=== PATIENT | female | born 1955 | race Caucasian/White ===

== ENCOUNTER 2022-07-10 14:32 | Inpatient (IN) | payer OTHER ==
[~2022-07-10] VITALS: Ht 157.5 cm; Wt 47.5 kg
[2022-07-10] MEDS ORDERED: VANC750F2 IV (15:01)
[2022-07-10] MEDS ORDERED: ATOR40TA28 PO (15:01)
[2022-07-10] MEDS ORDERED: FERRHI IV (15:01)
[2022-07-10 15:08] LABS: BASOPHILS % (AUTO) 0.9 % (0.0-2.0); EOSINOPHILS % (AUTO) 0.1 % (1.0-6.0); HEMATOCRIT 28.3 % (36-46); HEMOGLOBIN 9.2 g/dL (12.0-16.0); LYMPHOCYTES # (AUTO) 1.2 K/uL (1.0-4.8); LYMPHOCYTES % (AUTO) 12.9 % (22.0-44.0); MEAN CORPUSCULAR HEMOGLOBIN 27.6 pg (26.0-34.0); MEAN CORPUSCULAR HGB CONC 32.6 G/dL (31.0-37.0); MEAN CORPUSCULAR VOLUME 85 fL (80-100); MONOCYTES # (AUTO) 0.6 K/uL (0.1-1.0); MONOCYTES % (AUTO) 6.2 % (2.0-9.0); NEUTROPHILS # (AUTO) 7.4 K/uL (1.8-7.7); NEUTROPHILS % (AUTO) 79.9 % (40.0-70.0); PLATELET COUNT (AUTO) 341 K/uL (150-450); RED BLOOD CELL COUNT(AUTO) 3.34 MIL/uL (4.00-5.20); RED CELL DISTRIBUTION WIDTH 14.8 % (11.5-14.5)
[2022-07-10 15:19] LABS: ANION GAP 9 mmol/L (8-16); CALCIUM, TOTAL 8.4 mg/dL (8.8-10.5); CARBON DIOXIDE 26 mmol/L (22-29); CHLORIDE 105 mmol/L (98-107); CREATININE 0.88 mg/dL (0.60-1.30); GLOMERULAR FILTR. RATE CALC > 60 mL/min (>60); GLUCOSE,RANDOM 110 mg/dL (70-110); INR 1.1 (0.9-1.1); POTASSIUM 3.1 mmol/L (3.5-5.1); SODIUM SERUM 140 mmol/L (136-145); UREA NITROGEN, BLOOD 7 mg/dL (7-18)
[2022-07-10 15:22] LABS: B-TYPE NATRIURETIC PEPTIDE 456 pg/mL (0-100)
[2022-07-10 15:24] LABS: ALANINE AMINOTRANSFERASE 14 U/L (12-78); ALBUMIN 2.3 g/dL (3.4-5.0); ALKALINE PHOSPHATASE 76 U/L (46-116); ASPARTATE AMINOTRANSFERASE 17 U/L (15-37); BILIRUBIN,TOTAL 0.4 mg/dL (0.1-1.0); CREATINE KINASE, TOTAL ONLY 40 U/L (26-192); TOTAL PROTEIN, SERUM 6.2 g/dL (6.4-8.2)
[2022-07-10] MEDS ORDERED: ONDANSETRON HCL 4 MG/2 ML VIAL IVP PRN (15:30)
[2022-07-10] MEDS ORDERED: VANCOMYCIN HCL 1 GM/D5% WATER 200 ML IV ONE (15:30)
[2022-07-10] MEDS ORDERED: AMIO50VI IV (15:34)
[2022-07-10] MEDS ORDERED: ASPI-1450 PO (15:34)
[2022-07-10] MEDS ORDERED: VANCOMYCIN HCL 1.25 GM in DEXTROSE 5%-WATER 250 ML IV ONE (15:45)
[2022-07-10 15:54] LABS: C-REACTIVE PROTEIN QUANT 4.29 mg/dL (0.00-0.30)
[2022-07-10] MEDS ORDERED: CefTRIAXone 1 GM/DEXTROSE 50 ML IV SCH (16:00)
[2022-07-10] MEDS ORDERED: POTASSIUM CHLORIDE 20 MEQ ER TABLET PO PRN (16:15)
[2022-07-10] MEDS ORDERED: POTASSIUM CHL 10 MEQ/WATER 50 ML IV PRN (16:15)
[2022-07-10 16:28] LABS: ERYTHROCYTE SEDIMENTATION RATE 55 MM/HR (0-20)
[2022-07-10] MEDS ORDERED: SODIUM CHLORIDE 0.9% 100 ML ONE (18:16)
[2022-07-10] MEDS ORDERED: IOHEXOL 300 MG/ML 100 ML VIAL ONE (18:16)
[2022-07-10 20:13] LABS: COVID AG,FIA SOURCE NASAL SWAB
[2022-07-10 20:15] LABS: APPEARANCE,URINE CLEAR (CLEAR); BILIRUBIN,URINE NEGATIVE (NEGATIVE); GLUCOSE, URINE (UA) NEGATIVE (NEGATIVE); KETONES,URINE NEGATIVE (NEGATIVE); LEUKOCYTE ESTERASE ,URINE NEGATIVE (NEGATIVE); NITRATE,URINE NEGATIVE (NEGATIVE); OCCULT BLOOD,URINE NEGATIVE (NEGATIVE); PH,URINE 6.5 (5.0-8.0); PROTEIN,URINE NEGATIVE (NEGATIVE); SPECIFIC GRAVITIY, URINE 1.011 (1.003-1.030); UROBILINOGEN,URINE <=1.0 mg/dL (<=1.0)
[2022-07-10] MEDS ORDERED: APIXABAN 5 MG TABLET PO SCH (21:00)
[2022-07-10 21:21] VITALS: BP 136/77
[2022-07-10] MEDS: AMIODARONE HCL 200 MG TABLET PO SCH (21:29)
[2022-07-10] MEDS: HEPARIN SODIUM,PORCINE 5,000 UNITS/ML VIAL SQ SCH (21:29)
[2022-07-10] MEDS: ATORVASTATIN CALCIUM 40 MG TABLET PO SCH (21:29)
[2022-07-10] MEDS: DOCUSATE SODIUM 100 MG CAPSULE PO SCH (21:29)
[2022-07-10] MEDS ORDERED: INFLUENZA VIRUS VACCINE QVS 2022-23 (6MO+)/PF 60 MCG/0.5 ML SYRINGE IM. ONE (22:30)
[2022-07-10] MEDS ORDERED: PNEUMOCOCCAL VACCINE POLYVALENT 0.5 ML VIAL [PPSV23] IM. ONE (22:30)
[2022-07-11] VITALS (19 sets, daily range): BP systolic 111–159; BP diastolic 72–82
[2022-07-11 06:53] LABS: BASOPHILS % (AUTO) 1.5 % (0.0-2.0); EOSINOPHILS % (AUTO) 0.9 % (1.0-6.0); HEMATOCRIT 26.8 % (36-46); LYMPHOCYTES # (AUTO) 1.2 K/uL (1.0-4.8); MEAN CORPUSCULAR HEMOGLOBIN 28.2 pg (26.0-34.0); MEAN CORPUSCULAR HGB CONC 33.6 G/dL (31.0-37.0); MEAN CORPUSCULAR VOLUME 84 fL (80-100); MONOCYTES # (AUTO) 0.5 K/uL (0.1-1.0); MONOCYTES % (AUTO) 6.3 % (2.0-9.0); NEUTROPHILS # (AUTO) 5.5 K/uL (1.8-7.7); NEUTROPHILS % (AUTO) 74.3 % (40.0-70.0); PLATELET COUNT (AUTO) 350 K/uL (150-450); RED BLOOD CELL COUNT(AUTO) 3.19 MIL/uL (4.00-5.20); RED CELL DISTRIBUTION WIDTH 14.6 % (11.5-14.5)
[2022-07-11 07:06] LABS: ANION GAP 9 mmol/L (8-16); CALCIUM, TOTAL 8.7 mg/dL (8.8-10.5); CARBON DIOXIDE 26 mmol/L (22-29); CHLORIDE 107 mmol/L (98-107); CREATININE 0.63 mg/dL (0.60-1.30); GLUCOSE,RANDOM 95 mg/dL (70-110); POTASSIUM 3.5 mmol/L (3.5-5.1); SODIUM SERUM 142 mmol/L (136-145); UREA NITROGEN, BLOOD 4 mg/dL (7-18)
[2022-07-11 07:07] LABS: GLOMERULAR FILTR. RATE CALC > 60 mL/min (>60)
[2022-07-11] MEDS: AMIODARONE HCL 200 MG TABLET PO SCH ×2 (08:14→21:23)
[2022-07-11] MEDS: HEPARIN SODIUM,PORCINE 5,000 UNITS/ML VIAL SQ SCH ×2 (08:14→21:00)
[2022-07-11] MEDS: DOCUSATE SODIUM 100 MG CAPSULE PO SCH ×2 (08:14→21:23)
[2022-07-11] MEDS: FAMOTIDINE 20 MG TABLET PO SCH (08:14)
[2022-07-11] MEDS: VANCOMYCIN HCL 750 MG in DEXTROSE 5%-WATER 250 ML IV SCH ×2 (08:15→21:24)
[2022-07-11] MEDS ORDERED: SODIUM CHLORIDE 0.9% 500 ML IV ONE ×2 (08:27→15:30)
[2022-07-11] MEDS ORDERED: LIDOCAINE 2% VISCOUS 15 ML SOLUTION UDCUP ONE (08:45)
[2022-07-11] MEDS ORDERED: MIDAZOLAM HCL 2 MG/2 ML VIAL ONE ×2 (09:39→15:10)
[2022-07-11] MEDS ORDERED: FentaNYL CITRATE PF 100 MCG/2 ML VIAL ONE ×2 (09:39→15:10)
[2022-07-11] MEDS ORDERED: LIDOCAINE 2% VISCOUS 15 ML SOLUTION UDCUP PO ONE (09:45)
[2022-07-11] MEDS ORDERED: MIDAZOLAM HCL 2 MG/2 ML VIAL IVP ONE ×3 (09:45→15:30)
[2022-07-11] MEDS ORDERED: FentaNYL CITRATE PF 100 MCG/2 ML VIAL IVP ONE ×3 (09:45→15:30)
[2022-07-11] MEDS ORDERED: PEG 400/HYPROMELLOSE/GLYCERIN 15 ML OPHTHALMIC SOLUTION OU PRN (12:00)
[2022-07-11] MEDS ORDERED: LIDOCAINE/PF 1% 30 ML VIAL ONE (14:32)
[2022-07-11] MEDS ORDERED: VERAPAMIL HCL 2.5 MG/ML 2 ML VIAL ONE (14:32)
[2022-07-11] MEDS ORDERED: IOHEXOL 300 MG/ML 100 ML VIAL ONE (14:32)
[2022-07-11] MEDS ORDERED: SODIUM BICARBONATE 50 MEQ/50 ML VIAL ONE (14:32)
[2022-07-11] MEDS ORDERED: NITROGLYCERIN 50 MG/D5% WATER 250 ML ONE (14:32)
[2022-07-11] MEDS ORDERED: HEPARIN SODIUM 1000 UNITS/NS 1,000 ML ONE (14:32)
[2022-07-11] MEDS ORDERED: IOHEXOL 300 MG/ML 100 ML VIAL IARTER ONE (15:30)
[2022-07-11] MEDS ORDERED: LIDOCAINE 1% 30 ML/SOD BICARB 8.4% 4 ML SQ ONE (15:30)
[2022-07-11] MEDS ORDERED: HEPARIN SODIUM 2,000 UNITS in HEPARIN SODIUM 1000 UNITS/NS 1,000 ML IARTER ONE (15:30)
[2022-07-11] MEDS ORDERED: HEPARIN SODIUM,PORCINE 1,000 UNITS/ML 10 ML VIAL IARTER ONE (15:30)
[2022-07-11] MEDS ORDERED: NITROGLYCERIN/D5W 50 MG/250 ML IV BOTTLE IARTER ONE (15:30)
[2022-07-11] MEDS ORDERED: VERAPAMIL HCL 2.5 MG/ML 2 ML VIAL IARTER ONE (15:30)
[2022-07-11] MEDS: CefTRIAXone SODIUM 2 GM in DEXTROSE 5%-WATER 50 ML IV SCH (16:07)
[2022-07-11] MEDS: ATORVASTATIN CALCIUM 40 MG TABLET PO SCH (21:23)
[2022-07-12 04:23] VITALS: BP 107/69
[2022-07-12] MEDS: VANCOMYCIN HCL 750 MG in DEXTROSE 5%-WATER 250 ML IV SCH ×2 (07:03→20:58)
[2022-07-12 07:22] VITALS: BP 127/77
[2022-07-12 07:25] LABS: ANION GAP 7 mmol/L (8-16); C-REACTIVE PROTEIN QUANT 2.94 mg/dL (0.00-0.30); CALCIUM, TOTAL 8.3 mg/dL (8.8-10.5); CARBON DIOXIDE 28 mmol/L (22-29); CHLORIDE 103 mmol/L (98-107); CREATININE 0.84 mg/dL (0.60-1.30); GLUCOSE,RANDOM 99 mg/dL (70-110); POTASSIUM 3.4 mmol/L (3.5-5.1); SODIUM SERUM 138 mmol/L (136-145); UREA NITROGEN, BLOOD 4 mg/dL (7-18); VANCOMYCIN,RANDOM 22.6 mcg/mL (25.0-50.0)
[2022-07-12 07:28] LABS: GLOMERULAR FILTR. RATE CALC > 60 mL/min (>60)
[2022-07-12] MEDS: AMIODARONE HCL 200 MG TABLET PO SCH ×2 (09:04→21:14)
[2022-07-12] MEDS: FAMOTIDINE 20 MG TABLET PO SCH (09:05)
[2022-07-12] MEDS: DOCUSATE SODIUM 100 MG CAPSULE PO SCH ×2 (09:05→21:00)
[2022-07-12] MEDS: HEPARIN SODIUM,PORCINE 5,000 UNITS/ML VIAL SQ SCH ×2 (09:09→21:14)
[2022-07-12 11:08] VITALS: BP 132/75
[2022-07-12 15:31] VITALS: BP 141/81
[2022-07-12] MEDS: CefTRIAXone SODIUM 2 GM in DEXTROSE 5%-WATER 50 ML IV SCH (16:21)
[2022-07-12 20:00] VITALS: BP 133/75
[2022-07-12] MEDS: ATORVASTATIN CALCIUM 40 MG TABLET PO SCH (21:14)
[2022-07-13 00:15] VITALS: BP 135/69
[2022-07-13 04:02] VITALS: BP 106/66
[2022-07-13 07:13] LABS: ANION GAP 7 mmol/L (8-16); CALCIUM, TOTAL 8.3 mg/dL (8.8-10.5); CARBON DIOXIDE 27 mmol/L (22-29); CHLORIDE 104 mmol/L (98-107); GLUCOSE,RANDOM 98 mg/dL (70-110); SODIUM SERUM 138 mmol/L (136-145); UREA NITROGEN, BLOOD 3 mg/dL (7-18)
[2022-07-13 07:14] LABS: GLOMERULAR FILTR. RATE CALC > 60 mL/min (>60)
[2022-07-13] MEDS: AMIODARONE HCL 200 MG TABLET PO SCH ×2 (08:22→20:51)
[2022-07-13] MEDS: HEPARIN SODIUM,PORCINE 5,000 UNITS/ML VIAL SQ SCH (08:22)
[2022-07-13] MEDS: DOCUSATE SODIUM 100 MG CAPSULE PO SCH ×2 (08:22→20:50)
[2022-07-13] MEDS: FAMOTIDINE 20 MG TABLET PO SCH (08:22)
[2022-07-13] MEDS: VANCOMYCIN HCL 750 MG in DEXTROSE 5%-WATER 250 ML IV SCH ×2 (08:28→20:49)
[2022-07-13 08:46] VITALS: BP 128/76
[2022-07-13 10:18] LABS: CHOL/HDL RATIO 2.5 (3.9-5.7); CHOLESTEROL 113 mg/dL (131-200); HDL CHOLESTEROL 45 mg/dL (40-60); LDL CHOL (CALC.) 54 mg/dL (0-130); TRIGLYCERIDES 69 mg/dL (15-150)
[2022-07-13 11:18] VITALS: BP 126/75
[2022-07-13 11:36] LABS: BASOPHILS % (AUTO) 0.3 % (0.0-2.0); EOSINOPHILS % (AUTO) 1.8 % (1.0-6.0); HEMATOCRIT 27.7 % (36-46); HEMOGLOBIN 9.2 g/dL (12.0-16.0); LYMPHOCYTES # (AUTO) 1.3 K/uL (1.0-4.8); LYMPHOCYTES % (AUTO) 15.1 % (22.0-44.0); MEAN CORPUSCULAR HEMOGLOBIN 28.4 pg (26.0-34.0); MEAN CORPUSCULAR HGB CONC 33.1 G/dL (31.0-37.0); MEAN CORPUSCULAR VOLUME 86 fL (80-100); MONOCYTES # (AUTO) 0.5 K/uL (0.1-1.0); MONOCYTES % (AUTO) 5.6 % (2.0-9.0); NEUTROPHILS # (AUTO) 6.7 K/uL (1.8-7.7); NEUTROPHILS % (AUTO) 77.2 % (40.0-70.0); PLATELET COUNT (AUTO) 338 K/uL (150-450); RED BLOOD CELL COUNT(AUTO) 3.23 MIL/uL (4.00-5.20); RED CELL DISTRIBUTION WIDTH 15.1 % (11.5-14.5)
[2022-07-13 15:50] VITALS: BP 138/81
[2022-07-13] MEDS: CefTRIAXone SODIUM 2 GM in DEXTROSE 5%-WATER 50 ML IV SCH (16:08)
[2022-07-13 20:01] VITALS: BP 134/71
[2022-07-13] MEDS: ATORVASTATIN CALCIUM 40 MG TABLET PO SCH (20:50)
[2022-07-13] MEDS: APIXABAN 5 MG TABLET PO SCH (20:50)
[2022-07-14 00:25] VITALS: BP 110/61
[2022-07-14 04:40] VITALS: BP 105/60
[2022-07-14 07:21] VITALS: BP 131/79
[2022-07-14 07:33] LABS: C-REACTIVE PROTEIN QUANT 3.33 mg/dL (0.00-0.30); CALCIUM, TOTAL 8.8 mg/dL (8.8-10.5); CREATININE 0.97 mg/dL (0.60-1.30); POTASSIUM 4.1 mmol/L (3.5-5.1); VANCOMYCIN,RANDOM 26.1 mcg/mL (25.0-50.0)
[2022-07-14] MEDS: DOCUSATE SODIUM 100 MG CAPSULE PO SCH ×2 (08:15→20:20)
[2022-07-14] MEDS: FAMOTIDINE 20 MG TABLET PO SCH (08:15)
[2022-07-14] MEDS: AMIODARONE HCL 200 MG TABLET PO SCH ×2 (08:15→20:21)
[2022-07-14] MEDS: APIXABAN 5 MG TABLET PO SCH ×2 (08:16→20:21)
[2022-07-14] MEDS: VANCOMYCIN HCL 500 MG in DEXTROSE 5%-WATER 100 ML IV SCH ×3 (08:27→20:39)
[2022-07-14] MEDS: MULTIVITAMINS WITH MINERALS, THERAPEUTIC TABLET PO SCH (10:45)
[2022-07-14 11:30] VITALS: BP 133/78
[2022-07-14 14:56] VITALS: BP 129/73
[2022-07-14] MEDS: CefTRIAXone SODIUM 2 GM in DEXTROSE 5%-WATER 50 ML IV SCH (17:04)
[2022-07-14] MEDS: ACETAMINOPHEN 325 MG TABLET PO PRN (17:04)
[2022-07-14 20:02] VITALS: BP 121/74
[2022-07-14] MEDS: ATORVASTATIN CALCIUM 40 MG TABLET PO SCH (20:21)
[2022-07-15 05:11] VITALS: BP 111/71
[2022-07-15 07:50] LABS: ANION GAP 7 mmol/L (8-16); C-REACTIVE PROTEIN QUANT 3.42 mg/dL (0.00-0.30); CALCIUM, TOTAL 8.6 mg/dL (8.8-10.5); CARBON DIOXIDE 29 mmol/L (22-29); CHLORIDE 103 mmol/L (98-107); CREATININE 0.92 mg/dL (0.60-1.30); GLUCOSE,RANDOM 95 mg/dL (70-110); POTASSIUM 4.1 mmol/L (3.5-5.1); SODIUM SERUM 139 mmol/L (136-145); UREA NITROGEN, BLOOD 7 mg/dL (7-18)
[2022-07-15 07:53] LABS: GLOMERULAR FILTR. RATE CALC > 60 mL/min (>60)
[2022-07-15 08:12] VITALS: BP 137/73
[2022-07-15] MEDS: VANCOMYCIN HCL 500 MG in DEXTROSE 5%-WATER 100 ML IV SCH ×2 (09:08→19:43)
[2022-07-15] MEDS: MULTIVITAMINS WITH MINERALS, THERAPEUTIC TABLET PO SCH (09:09)
[2022-07-15] MEDS: DOCUSATE SODIUM 100 MG CAPSULE PO SCH ×2 (09:09→19:43)
[2022-07-15] MEDS: AMIODARONE HCL 200 MG TABLET PO SCH ×2 (09:10→19:42)
[2022-07-15] MEDS: APIXABAN 5 MG TABLET PO SCH ×2 (09:10→19:43)
[2022-07-15] MEDS: FAMOTIDINE 20 MG TABLET PO SCH (09:10)
[2022-07-15 11:16] VITALS: BP 126/67
[2022-07-15 16:05] VITALS: BP 129/75
[2022-07-15] MEDS ORDERED: GADOTERATE MEGLUMINE 10 MMOL/20 ML VIAL IVP ONE (17:52)
[2022-07-15] MEDS: AMPICILLIN SODIUM/SULBACTAM NA 3 GM in SODIUM CHLORIDE 0.9% 100 ML IV SCH (19:42)
[2022-07-15] MEDS: ATORVASTATIN CALCIUM 40 MG TABLET PO SCH (19:43)
[2022-07-15 20:15] VITALS: BP 128/55
[2022-07-15] MEDS ORDERED: SODIUM CHLORIDE 0.9% 500 ML IV ONE (20:15)
[2022-07-16] VITALS (7 sets, daily range): BP systolic 110–127; BP diastolic 57–77
[2022-07-16] MEDS: AMPICILLIN SODIUM/SULBACTAM NA 3 GM in SODIUM CHLORIDE 0.9% 100 ML IV SCH ×4 (00:21→17:48)
[2022-07-16 07:13] LABS: BASOPHILS % (AUTO) 1.1 % (0.0-2.0); EOSINOPHILS % (AUTO) 1.3 % (1.0-6.0); HEMATOCRIT 28.8 % (36-46); HEMOGLOBIN 9.5 g/dL (12.0-16.0); LYMPHOCYTES # (AUTO) 0.9 K/uL (1.0-4.8); LYMPHOCYTES % (AUTO) 8.7 % (22.0-44.0); MEAN CORPUSCULAR HEMOGLOBIN 28.8 pg (26.0-34.0); MEAN CORPUSCULAR VOLUME 87 fL (80-100); MONOCYTES # (AUTO) 0.5 K/uL (0.1-1.0); NEUTROPHILS # (AUTO) 8.9 K/uL (1.8-7.7); NEUTROPHILS % (AUTO) 83.9 % (40.0-70.0); PLATELET COUNT (AUTO) 361 K/uL (150-450); RED CELL DISTRIBUTION WIDTH 15.3 % (11.5-14.5)
[2022-07-16 07:48] LABS: ANION GAP 4 mmol/L (8-16); C-REACTIVE PROTEIN QUANT 3.28 mg/dL (0.00-0.30); CALCIUM, TOTAL 8.6 mg/dL (8.8-10.5); CARBON DIOXIDE 30 mmol/L (22-29); CHLORIDE 100 mmol/L (98-107); GLUCOSE,RANDOM 98 mg/dL (70-110); POTASSIUM 4.5 mmol/L (3.5-5.1); SODIUM SERUM 134 mmol/L (136-145); UREA NITROGEN, BLOOD 10 mg/dL (7-18); VANCOMYCIN,RANDOM 18.7 mcg/mL (25.0-50.0)
[2022-07-16 07:50] LABS: GLOMERULAR FILTR. RATE CALC > 60 mL/min (>60)
[2022-07-16] MEDS: APIXABAN 5 MG TABLET PO SCH ×2 (08:46→21:31)
[2022-07-16] MEDS: DOCUSATE SODIUM 100 MG CAPSULE PO SCH ×2 (08:46→21:31)
[2022-07-16] MEDS: FAMOTIDINE 20 MG TABLET PO SCH (08:46)
[2022-07-16] MEDS: MULTIVITAMINS WITH MINERALS, THERAPEUTIC TABLET PO SCH (08:46)
[2022-07-16] MEDS: AMIODARONE HCL 200 MG TABLET PO SCH ×2 (08:47→21:30)
[2022-07-16] MEDS: VANCOMYCIN HCL 500 MG in DEXTROSE 5%-WATER 100 ML IV SCH ×2 (08:48→21:55)
[2022-07-16] MEDS: ATORVASTATIN CALCIUM 40 MG TABLET PO SCH (21:29)
[2022-07-16] MEDS ORDERED: SODIUM CHLORIDE 0.9% 250 ML IV ONE (23:58)
[2022-07-17] MEDS: AMPICILLIN SODIUM/SULBACTAM NA 3 GM in SODIUM CHLORIDE 0.9% 100 ML IV SCH ×4 (01:54→21:39)
[2022-07-17 04:08] VITALS: BP 101/60
[2022-07-17 07:01] LABS: ALBUMIN 2.3 g/dL (3.4-5.0); BILIRUBIN,TOTAL 0.4 mg/dL (0.1-1.0); C-REACTIVE PROTEIN QUANT 2.9 mg/dL (0.00-0.30); CALCIUM, TOTAL 8.6 mg/dL (8.8-10.5); CREATININE 0.93 mg/dL (0.60-1.30); POTASSIUM 4.1 mmol/L (3.5-5.1); TOTAL PROTEIN, SERUM 6.3 g/dL (6.4-8.2)
[2022-07-17 08:12] VITALS: BP 103/61
[2022-07-17] MEDS: VANCOMYCIN HCL 500 MG in DEXTROSE 5%-WATER 100 ML IV SCH ×2 (08:12→20:31)
[2022-07-17] MEDS: MULTIVITAMINS WITH MINERALS, THERAPEUTIC TABLET PO SCH (08:12)
[2022-07-17] MEDS: APIXABAN 5 MG TABLET PO SCH ×2 (08:13→21:00)
[2022-07-17] MEDS: DOCUSATE SODIUM 100 MG CAPSULE PO SCH ×2 (08:13→20:31)
[2022-07-17] MEDS: FAMOTIDINE 20 MG TABLET PO SCH (08:13)
[2022-07-17] MEDS: AMIODARONE HCL 200 MG TABLET PO SCH ×2 (08:13→20:31)
[2022-07-17 10:07] LABS: BARTONELLA QUINTANA IGG TITER Negative titer (Neg:<1:320); BARTONELLA QUINTANA IGM TITER Negative titer (Neg:<1:100)
[2022-07-17 12:07] LABS: Q FEVER AB PHASE I Negative (Neg:<1:16)
[2022-07-17 12:17] VITALS: BP 113/64
[2022-07-17 16:23] VITALS: BP 123/69
[2022-07-17 20:00] VITALS: BP 117/63
[2022-07-17] MEDS: ATORVASTATIN CALCIUM 40 MG TABLET PO SCH (20:31)
[2022-07-17 23:48] VITALS: BP 112/60
[2022-07-18] MEDS: AMPICILLIN SODIUM/SULBACTAM NA 3 GM in SODIUM CHLORIDE 0.9% 100 ML IV SCH ×4 (03:07→20:27)
[2022-07-18 05:20] VITALS: BP 121/62
[2022-07-18 07:01] VITALS: BP 119/68
[2022-07-18] MEDS: AMIODARONE HCL 200 MG TABLET PO SCH ×2 (07:53→20:26)
[2022-07-18] MEDS: VANCOMYCIN HCL 500 MG in DEXTROSE 5%-WATER 100 ML IV SCH ×2 (07:57→20:26)
[2022-07-18] MEDS: APIXABAN 5 MG TABLET PO SCH ×2 (07:57→20:26)
[2022-07-18] MEDS: DOCUSATE SODIUM 100 MG CAPSULE PO SCH ×2 (07:57→20:26)
[2022-07-18] MEDS: FAMOTIDINE 20 MG TABLET PO SCH (07:58)
[2022-07-18] MEDS: MULTIVITAMINS WITH MINERALS, THERAPEUTIC TABLET PO SCH (07:58)
[2022-07-18 08:57] LABS: CALCIUM, TOTAL 8.8 mg/dL (8.8-10.5); CREATININE 1.03 mg/dL (0.60-1.30)
[2022-07-18 11:51] VITALS: BP 124/68
[2022-07-18] MEDS ORDERED: RINGERS SOLUTION,LACTATED 1,000 ML IV ONE (14:30)
[2022-07-18 15:52] VITALS: BP 117/69
[2022-07-18 19:17] VITALS: BP 129/78
[2022-07-18] MEDS: ATORVASTATIN CALCIUM 40 MG TABLET PO SCH (20:26)
[2022-07-18] MEDS: ACETAMINOPHEN 325 MG TABLET PO PRN (20:26)
[2022-07-18] MEDS ORDERED: SODIUM CHLORIDE 0.9% 250 ML IV ONE (20:32)
[2022-07-18 23:40] VITALS: BP 132/75
[2022-07-19 03:40] VITALS: BP 95/54
[2022-07-19] MEDS: AMPICILLIN SODIUM/SULBACTAM NA 3 GM in SODIUM CHLORIDE 0.9% 100 ML IV SCH ×4 (03:46→22:30)
[2022-07-19 07:32] LABS: CALCIUM, TOTAL 9.3 mg/dL (8.8-10.5); CREATININE 1.06 mg/dL (0.60-1.30); VANCOMYCIN,RANDOM 17.1 mcg/mL (25.0-50.0)
[2022-07-19 07:52] VITALS: BP 134/76
[2022-07-19] MEDS: MULTIVITAMINS WITH MINERALS, THERAPEUTIC TABLET PO SCH (08:25)
[2022-07-19] MEDS: AMIODARONE HCL 200 MG TABLET PO SCH ×2 (08:26→20:37)
[2022-07-19] MEDS: APIXABAN 5 MG TABLET PO SCH ×2 (08:27→20:37)
[2022-07-19] MEDS: FAMOTIDINE 20 MG TABLET PO SCH (08:27)
[2022-07-19] MEDS: DOCUSATE SODIUM 100 MG CAPSULE PO SCH ×2 (08:27→20:37)
[2022-07-19] MEDS: VANCOMYCIN HCL 500 MG in DEXTROSE 5%-WATER 100 ML IV SCH ×2 (08:28→20:37)
[2022-07-19 16:41] VITALS: BP 124/71
[2022-07-19] MEDS: ATORVASTATIN CALCIUM 40 MG TABLET PO SCH (20:37)
[2022-07-19 23:40] VITALS: BP 140/64
[2022-07-20 04:00] VITALS: BP 109/70
[2022-07-20] MEDS: AMPICILLIN SODIUM/SULBACTAM NA 3 GM in SODIUM CHLORIDE 0.9% 100 ML IV SCH ×4 (04:39→21:00)
[2022-07-20 06:16] LABS: BASOPHILS % (AUTO) 0.7 % (0.0-2.0); EOSINOPHILS % (AUTO) 0.6 % (1.0-6.0); HEMATOCRIT 31.4 % (36-46); HEMOGLOBIN 10.2 g/dL (12.0-16.0); LYMPHOCYTES # (AUTO) 0.9 K/uL (1.0-4.8); LYMPHOCYTES % (AUTO) 9.5 % (22.0-44.0); MEAN CORPUSCULAR HEMOGLOBIN 28.3 pg (26.0-34.0); MEAN CORPUSCULAR HGB CONC 32.4 G/dL (31.0-37.0); MEAN CORPUSCULAR VOLUME 87 fL (80-100); MONOCYTES # (AUTO) 0.5 K/uL (0.1-1.0); MONOCYTES % (AUTO) 5.5 % (2.0-9.0); NEUTROPHILS # (AUTO) 8.1 K/uL (1.8-7.7); NEUTROPHILS % (AUTO) 83.7 % (40.0-70.0); PLATELET COUNT (AUTO) 364 K/uL (150-450); RED CELL DISTRIBUTION WIDTH 16.6 % (11.5-14.5)
[2022-07-20 06:37] LABS: ALBUMIN 2.5 g/dL (3.4-5.0); BILIRUBIN,TOTAL 0.4 mg/dL (0.1-1.0); CALCIUM, TOTAL 8.8 mg/dL (8.8-10.5); CREATININE 1.03 mg/dL (0.60-1.30); MAGNESIUM 2.7 mg/dL (1.80-2.40); POTASSIUM 4.1 mmol/L (3.5-5.1)
[2022-07-20] MEDS: VANCOMYCIN HCL 500 MG in DEXTROSE 5%-WATER 100 ML IV SCH ×2 (08:45→20:34)
[2022-07-20] MEDS: DOCUSATE SODIUM 100 MG CAPSULE PO SCH ×2 (09:59→20:34)
[2022-07-20] MEDS: FAMOTIDINE 20 MG TABLET PO SCH (09:59)
[2022-07-20] MEDS: AMIODARONE HCL 200 MG TABLET PO SCH ×2 (09:59→20:34)
[2022-07-20] MEDS: MULTIVITAMINS WITH MINERALS, THERAPEUTIC TABLET PO SCH (09:59)
[2022-07-20] MEDS: APIXABAN 5 MG TABLET PO SCH ×2 (09:59→20:34)
[2022-07-20 12:15] VITALS: BP 123/73
[2022-07-20] MEDS: ACETAMINOPHEN 325 MG TABLET PO PRN (14:39)
[2022-07-20 15:48] VITALS: BP 112/69
[2022-07-20 16:00] VITALS: BP 117/73
[2022-07-20 20:02] VITALS: BP 123/74
[2022-07-20] MEDS: ATORVASTATIN CALCIUM 40 MG TABLET PO SCH (20:34)
[2022-07-21 00:17] VITALS: BP 111/64
[2022-07-21] MEDS: AMPICILLIN SODIUM/SULBACTAM NA 3 GM in SODIUM CHLORIDE 0.9% 100 ML IV SCH ×4 (03:59→22:51)
[2022-07-21 04:56] VITALS: BP 117/71
[2022-07-21 06:25] LABS: BASOPHILS % (AUTO) 0.6 % (0.0-2.0); EOSINOPHILS % (AUTO) 0.7 % (1.0-6.0); HEMATOCRIT 30.1 % (36-46); LYMPHOCYTES # (AUTO) 0.8 K/uL (1.0-4.8); MEAN CORPUSCULAR HEMOGLOBIN 29.1 pg (26.0-34.0); MEAN CORPUSCULAR HGB CONC 33.3 G/dL (31.0-37.0); MEAN CORPUSCULAR VOLUME 87 fL (80-100); MONOCYTES # (AUTO) 0.5 K/uL (0.1-1.0); MONOCYTES % (AUTO) 5.8 % (2.0-9.0); NEUTROPHILS % (AUTO) 83.9 % (40.0-70.0); PLATELET COUNT (AUTO) 381 K/uL (150-450); RED BLOOD CELL COUNT(AUTO) 3.45 MIL/uL (4.00-5.20); RED CELL DISTRIBUTION WIDTH 16.5 % (11.5-14.5)
[2022-07-21 06:39] LABS: ALBUMIN 2.6 g/dL (3.4-5.0); BILIRUBIN,TOTAL 0.3 mg/dL (0.1-1.0); C-REACTIVE PROTEIN QUANT 6.3 mg/dL (0.00-0.30); CREATININE 0.98 mg/dL (0.60-1.30); MAGNESIUM 2.8 mg/dL (1.80-2.40); POTASSIUM 4.6 mmol/L (3.5-5.1); TOTAL PROTEIN, SERUM 7.4 g/dL (6.4-8.2)
[2022-07-21] MEDS: DOCUSATE SODIUM 100 MG CAPSULE PO SCH ×2 (08:17→20:27)
[2022-07-21] MEDS: APIXABAN 5 MG TABLET PO SCH ×2 (08:18→20:27)
[2022-07-21] MEDS: FAMOTIDINE 20 MG TABLET PO SCH (08:18)
[2022-07-21] MEDS: AMIODARONE HCL 200 MG TABLET PO SCH ×2 (08:18→20:27)
[2022-07-21] MEDS: MULTIVITAMINS WITH MINERALS, THERAPEUTIC TABLET PO SCH (08:18)
[2022-07-21] MEDS: VANCOMYCIN HCL 500 MG in DEXTROSE 5%-WATER 100 ML IV SCH ×2 (08:18→20:27)
[2022-07-21] MEDS ORDERED: SODIUM CHLORIDE 0.9% 500 ML IV ONE (08:22)
[2022-07-21 08:39] VITALS: BP 124/70
[2022-07-21 10:02] LABS: INR 1.2 (0.9-1.1); PROTHROMBIN TIME 12.2 SEC (9.4-11.6)
[2022-07-21 12:19] VITALS: BP 126/59
[2022-07-21 15:35] VITALS: BP 133/69
[2022-07-21 19:59] VITALS: BP 121/69
[2022-07-21] MEDS: ATORVASTATIN CALCIUM 40 MG TABLET PO SCH (20:27)
[2022-07-22] VITALS (7 sets, daily range): BP systolic 111–145; BP diastolic 58–81
[2022-07-22] MEDS: AMPICILLIN SODIUM/SULBACTAM NA 3 GM in SODIUM CHLORIDE 0.9% 100 ML IV SCH ×4 (03:40→20:05)
[2022-07-22 06:29] LABS: CALCIUM, TOTAL 9.1 mg/dL (8.8-10.5); CREATININE 1.02 mg/dL (0.60-1.30); POTASSIUM 4.2 mmol/L (3.5-5.1)
[2022-07-22] MEDS: AMIODARONE HCL 200 MG TABLET PO SCH ×2 (08:01→20:05)
[2022-07-22] MEDS: APIXABAN 5 MG TABLET PO SCH ×2 (08:01→20:06)
[2022-07-22] MEDS: FAMOTIDINE 20 MG TABLET PO SCH (08:01)
[2022-07-22] MEDS: DOCUSATE SODIUM 100 MG CAPSULE PO SCH ×2 (08:01→20:05)
[2022-07-22] MEDS: MULTIVITAMINS WITH MINERALS, THERAPEUTIC TABLET PO SCH (08:01)
[2022-07-22] MEDS: VANCOMYCIN HCL 500 MG in DEXTROSE 5%-WATER 100 ML IV SCH (08:02)
[2022-07-22] MEDS: ATORVASTATIN CALCIUM 40 MG TABLET PO SCH (20:06)
[2022-07-22] MEDS: VANCOMYCIN HCL 750 MG in DEXTROSE 5%-WATER 250 ML IV SCH (21:50)
[2022-07-23] MEDS: AMPICILLIN SODIUM/SULBACTAM NA 3 GM in SODIUM CHLORIDE 0.9% 100 ML IV SCH ×4 (03:43→22:35)
[2022-07-23 04:52] VITALS: BP 123/71
[2022-07-23 07:25] VITALS: BP 118/64
[2022-07-23 07:38] LABS: POTASSIUM 4.6 mmol/L (3.5-5.1)
[2022-07-23] MEDS: MULTIVITAMINS WITH MINERALS, THERAPEUTIC TABLET PO SCH (08:07)
[2022-07-23] MEDS: DOCUSATE SODIUM 100 MG CAPSULE PO SCH ×2 (08:07→20:53)
[2022-07-23] MEDS: AMIODARONE HCL 200 MG TABLET PO SCH ×2 (08:07→20:52)
[2022-07-23] MEDS: APIXABAN 5 MG TABLET PO SCH ×2 (08:07→20:53)
[2022-07-23] MEDS: VANCOMYCIN HCL 750 MG in DEXTROSE 5%-WATER 250 ML IV SCH ×2 (08:07→20:53)
[2022-07-23] MEDS: FAMOTIDINE 20 MG TABLET PO SCH (08:07)
[2022-07-23 11:30] VITALS: BP 119/64
[2022-07-23] MEDS: ACETAMINOPHEN 325 MG TABLET PO PRN (14:08)
[2022-07-23 17:00] VITALS: BP 110/67
[2022-07-23 20:00] VITALS: BP 124/66
[2022-07-23] MEDS: ATORVASTATIN CALCIUM 40 MG TABLET PO SCH (20:53)
[2022-07-24] VITALS (7 sets, daily range): BP systolic 117–133; BP diastolic 59–79
[2022-07-24] MEDS: AMPICILLIN SODIUM/SULBACTAM NA 3 GM in SODIUM CHLORIDE 0.9% 100 ML IV SCH ×4 (04:34→20:34)
[2022-07-24 06:38] LABS: C-REACTIVE PROTEIN QUANT 4.69 mg/dL (0.00-0.30); CREATININE 1.03 mg/dL (0.60-1.30); POTASSIUM 4.1 mmol/L (3.5-5.1); VANCOMYCIN,RANDOM 21.9 mcg/mL (25.0-50.0)
[2022-07-24] MEDS: VANCOMYCIN HCL 750 MG in DEXTROSE 5%-WATER 250 ML IV SCH ×2 (09:42→19:32)
[2022-07-24] MEDS: DOCUSATE SODIUM 100 MG CAPSULE PO SCH ×2 (09:43→20:28)
[2022-07-24] MEDS: APIXABAN 5 MG TABLET PO SCH ×2 (09:43→20:28)
[2022-07-24] MEDS: AMIODARONE HCL 200 MG TABLET PO SCH ×2 (09:43→20:28)
[2022-07-24] MEDS: FAMOTIDINE 20 MG TABLET PO SCH (09:43)
[2022-07-24] MEDS: MULTIVITAMINS WITH MINERALS, THERAPEUTIC TABLET PO SCH (09:43)
[2022-07-24] MEDS: ATORVASTATIN CALCIUM 40 MG TABLET PO SCH (20:29)
[2022-07-24] MEDS ORDERED: SODIUM CHLORIDE 0.9% 500 ML IV ONE (22:15)
[2022-07-25 00:40] VITALS: BP 113/69
[2022-07-25] MEDS: AMPICILLIN SODIUM/SULBACTAM NA 3 GM in SODIUM CHLORIDE 0.9% 100 ML IV SCH ×4 (02:59→21:29)
[2022-07-25 05:41] VITALS: BP 120/68
[2022-07-25 06:53] LABS: C-REACTIVE PROTEIN QUANT 4.89 mg/dL (0.00-0.30); CALCIUM, TOTAL 9.3 mg/dL (8.8-10.5); CREATININE 0.99 mg/dL (0.60-1.30); POTASSIUM 4.4 mmol/L (3.5-5.1)
[2022-07-25 08:41] VITALS: BP 114/72
[2022-07-25] MEDS: VANCOMYCIN HCL 750 MG in DEXTROSE 5%-WATER 250 ML IV SCH ×2 (08:52→19:24)
[2022-07-25] MEDS: AMIODARONE HCL 200 MG TABLET PO SCH ×2 (08:59→20:01)
[2022-07-25] MEDS: ACETAMINOPHEN 325 MG TABLET PO PRN (08:59)
[2022-07-25] MEDS: APIXABAN 5 MG TABLET PO SCH ×2 (09:00→20:01)
[2022-07-25] MEDS: DOCUSATE SODIUM 100 MG CAPSULE PO SCH ×2 (09:00→20:01)
[2022-07-25] MEDS: MULTIVITAMINS WITH MINERALS, THERAPEUTIC TABLET PO SCH (09:00)
[2022-07-25] MEDS: FAMOTIDINE 20 MG TABLET PO SCH (09:00)
[2022-07-25 11:31] VITALS: BP 115/63
[2022-07-25 15:56] VITALS: BP 126/64
[2022-07-25 19:45] VITALS: BP 128/74
[2022-07-25] MEDS: ATORVASTATIN CALCIUM 40 MG TABLET PO SCH (20:01)
[2022-07-26] MEDS ORDERED: ASPI-1450 PO (00:23)
[2022-07-26] MEDS ORDERED: AMIO50VI IV (00:23)
[2022-07-26] MEDS ORDERED: ATOR40TA28 PO (00:23)
[2022-07-26] MEDS ORDERED: FERRHI IV (00:24)
[2022-07-26] MEDS ORDERED: VANC1PLA13 IV (00:37)
[2022-07-26] MEDS ORDERED: AMPI3VIA20 IV (00:42)
[2022-07-26] MEDS ORDERED: APIX5TAB PO (00:43)
[2022-07-26] MEDS ORDERED: DOCU-385 PO (00:45)
[2022-07-26] MEDS ORDERED: FAMO20 PO (00:45)
[2022-07-26] MEDS ORDERED: MULT-248 PO (00:47)
== END 2022-07-25 23:50 | disposition short-term general hospital (02) | DRG 65 ==
LOC: EMS 14:35 → 5S 18:37
PROVIDERS: ADMIT Internal Medicine; ATTEND Internal Medicine
PROC: B2111ZZ Fluoroscopy of Multiple Coronary Arteries using Low Osmolar Contrast (ICD-10-PCS; principal; 2022-07-11)
PROC: 4A023N7 Measurement of Cardiac Sampling and Pressure, Left Heart, Percutaneous Approach (ICD-10-PCS; 2022-07-11)
PROC: 0R9J3ZZ Drainage of Right Shoulder Joint, Percutaneous Approach (ICD-10-PCS; 2022-07-23)
DX: I63.9 Cerebral infarction, unspecified (principal); I38 Endocarditis, valve unspecified; I82.442 Acute embolism and thrombosis of left tibial vein; N39.0 Urinary tract infection, site not specified; I05.9 Rheumatic mitral valve disease, unspecified; I48.0 Paroxysmal atrial fibrillation; B96.20 Unspecified Escherichia coli [E. coli] as the cause of diseases classified elsewhere; Z86.73 Personal history of transient ischemic attack (TIA), and cerebral infarction without residual deficits; I10 Essential (primary) hypertension; Z20.822 Contact with and (suspected) exposure to COVID-19; I25.10 Atherosclerotic heart disease of native coronary artery without angina pectoris; M13.811 Other specified arthritis, right shoulder; M65.811 Other synovitis and tenosynovitis, right shoulder; M75.111 Incomplete rotator cuff tear or rupture of right shoulder, not specified as traumatic; M75.51 Bursitis of right shoulder; R29.810 Facial weakness; D63.8 Anemia in other chronic diseases classified elsewhere; Z79.01 Long term (current) use of anticoagulants; Z79.899 Other long term (current) drug therapy; Z95.2 Presence of prosthetic heart valve; Z98.82 Breast implant status; Z79.82 Long term (current) use of aspirin
CPT/HCPCS: 10022; 70487; 71045; 73223; 76881; 80048; 80053; 80061; 80202; 81003; 82550; 83735; 83880; 84132; 84145; 84484; 85025; 85610; 85651; 85730; 86038; 86140; 86611; 86622; 86631; 86632; 86638; 87040; 87075; 87205; 87449; 90686; 90732; 93005; 93306; 93312; 93880; 97110; 97112; 97140; 97162; 97165; 97535; 99285; J0295; J0696; J1644; J2250; J3010; J3370; J3490; J7040; J7050; J7060; Q9967; 36415-L1; 36415-TC; 87070; G0008; Z7610